=== PATIENT | male | born 1950 | race Caucasian/White ===

== ENCOUNTER 2016-08-29 11:56 | Emergency (ER) | payer BC, OTHER ==
[2016-08-29] MEDS ORDERED: Acetaminophen TAB* 325 MG PO ONE (12:12)
[2016-08-29 12:16] VITALS: BP 178/110
--- NOTE | 2016-08-29 12:44 | RAD ---
HISTORY: Right fourth digit deformity, trauma COMPARISONS: May 17, 2006 VIEWS: 3, Frontal, lateral, and oblique views of the fourth digit of the right hand FINDINGS: BONE DENSITY: Normal. BONES: There is no displaced fracture. 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 ALIGNMENT: There is posterior dislocation of the middle phalanx with respect to the proximal phalanx at the PIP joint SOFT TISSUES: Unremarkable. OTHER FINDINGS: None. IMPRESSION: FOURTH PIP JOINT DISLOCATION
[2016-08-29] MEDS ORDERED: Lidocaine 2% PF * 5 ML VIAL ONE (13:00)
--- NOTE | 2016-08-29 13:25 | UC ---
Raysa Cristobal Alok, scribed for Lucía Galaviz MD on 08/29/16 at 1214 . Hand/Wrist HPI - HPI Summary HPI Summary: 66 y/o male presents to the with after dislocating his right ring finger after slipping while picking up a gas can earlier today at 1000. Pt denies any dizziness. Pt is allergic to Aspirin which causes swelling but has taken Naproxen before with no adverse effects. - History Of Current Complaint Stated Complaint: FINGER INJURY Time Seen by Provider: 08/29/16 12:08 Hx Obtained From: Patient Onset/Duration: Gradual Onset, Lasting Hours, Still Present Severity Initially: Moderate Severity Currently: Moderate Pain Intensity: 7 Pain Scale Used: 0-10 Numeric Character Of Pain: Aching Aggravating Factor(s): Movement Alleviating: Nothing Associated Signs And Symptoms: Positive: Swelling. Negative: Fever, Weakness Related History: Dominant Hand Right - Allergies/Home Medications Allergies/Adverse Reactions: Allergies Allergy/AdvReac Type Severity Reaction Status Date / Time Aspirin Allergy Intermediate Difficulty Verified 09/17/14 10:12 Breathing hoarse serum Allergy Unknown Uncoded 09/22/15 16:47 Reaction Details PMH/Surg Hx/FS Hx/Imm Hx Previously Healthy: Yes Cancer History Of: Denies: Lung Cancer, Colorectal Cancer, Breast Cancer, Prostate Cancer, Cervical Cancer Other History Of: Negative For: HIV, Hepatitis B, Hepatitis C, Anticoagulant Therapy - Surgical History Surgical History: Yes Surgery Procedure, Year, and Place: tonsilectomy. 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 Alcohol Use: None Substance Use Type: None Smoking Status (MU): Never Smoked Tobacco Have You Smoked in the Last Year: No Review of Systems Constitutional: Negative Musculoskeletal: Other: - Dislocated right ring finger Neurological: Negative All Other Systems Reviewed And Are Negative: Yes Physical Exam Triage Information Reviewed: Yes Appearance: Well-Appearing, Well-Nourished, Pain Distress Vital Signs: Initial Vital Signs Temp 99.2 F 08/29/16 12:08 Pulse 90 08/29/16 12:08 Resp 18 08/29/16 12:08 BP 178/110 08/29/16 12:08 Pulse Ox 97 08/29/16 12:08 Vital Signs Reviewed: Yes Eyes: Positive: Conjunctiva Clear ENT: Positive: Normal ENT inspection Neck: Positive: Supple Respiratory: Positive: Lungs clear, Normal breath sounds, No respiratory distress Cardiovascular: Positive: RRR, No Murmur, Pulses Normal, Brisk Capillary Refill Abdomen Description: Negative: Splenomegaly Musculoskeletal: Positive: Other: - Dislocated right ring finger at PIP joint Neurological: Positive: Alert, Muscle Tone Normal Psychological Exam: Normal Skin Exam: Normal Procedures - Joint Reduction Joint Reduction Site: other - Right Ring Finger Specify Other Joint Reduced: PIP Conscious Sedation: No - 2% lidocaine for digital block of right 4th ring finger Reduction Attempts: 1 - Pt is in supine position Pre-Procedure NV Exam: Yes - intact Post Joint Reduction Film: joint not reduced Diagnostics - Radiology Finger XRay Xray Interpretation: Positive (See Comments) - IMPRESSION: FOURTH PIP JOINT DISLOCATION Radiology Interpretation Completed By: Radiologist Hand/Wrist Course/Dx - Differential Dx/Diagnosis Differential Diagnosis/HQI/PQRI: Dislocation - Right Ring Finger, Fracture, Sprain, Strain Provider Diagnoses: right ring finger PIP dislocation - Physician Notifications Discussed Patient Care With: Dr. Hendrix (Ortho) @ [id number] Discharge - Discharge Plan Condition: Stable Disposition: HOME Patient Education Materials: Finger Dislocation (ED) Forms: *Work Release Referrals: Johnathon Metcalf MD [Primary Care Provider] - Brittnee Hendrix MD [Medical Doctor] - As Soon As Possible (Dr. Hendrix will see you now. Please go directly to their office now. Do not eat or drink. ) Additional Instructions: RETURN TO URGENT CARE FOR ANY NEW OR WORSENING SYMPTOMS The documentation as recorded by the Raysa garsia Alok accurately reflects the service I personally performed and the decisions made by , Lucía Galaviz MD.
== END 2016-08-29 13:30 | disposition home or self-care (01) ==
LOC: UCEAST 11:56
DX: S63.274A Dislocation of unspecified interphalangeal joint of right ring finger, initial encounter (principal); W18.49XA Other slipping, tripping and stumbling without falling, initial encounter; Y93.89 Activity, other specified; Y92.9 Unspecified place or not applicable; Z88.6 Allergy status to analgesic agent
CPT/HCPCS: 73140; 99211; A9270-GY; G0463

== ENCOUNTER 2017-08-22 10:26 | Emergency (ER) | payer BC ==
[2017-08-22] MEDS ORDERED: NS 0.9% 1000 ML* 1,000 ML IV ONE (11:43)
[2017-08-22 12:10] LABS: ABS Basophils 0.1 10^3/ul (0-0.2); ABS Eosinophils 0 10^3/ul (0-0.6); ABS Lymphocytes 0.7 10^3/ul (1.0-4.8); ABS Monocytes 0.8 10^3/ul (0-0.8); ABS Neutrophils 14.9 10^3/ul (1.5-7.7); ABS Nucleated RBC 0 10^3/ul; Eosinophil % 0 % (0-6); Hematocrit 42 % (42-52); Lymphocyte % 4.2 % (25-47); Mean Corpuscular HGB Conc 34 g/dl (31-36); Mean Corpuscular Hemoglobin 30 pg (27-31); Mean Corpuscular Volume 90 fL (80-94); Mean Platelet Volume 8 um3 (7.4-10.4); Nucleated Red Blood Cells % 0.1; Platelet Count 257 10^3/ul (150-450); Red Blood Count 4.63 10^6/ul (4.0-5.4); Red Cell Distribution Width 14 % (10.5-15); White Blood Count 16.5 10^3/ul (3.5-10.8)
--- NOTE | 2017-08-22 12:23 | RAD ---
HISTORY: Abdominal pain COMPARISONS: None VIEWS: Frontal supine and upright views of the abdomen. FINDINGS: BOWEL: There is a nonobstructive bowel gas pattern. There is a large amount of stool within the colon. CALCULI: There are no abnormal calculi. BONES AND SOFT TISSUES: Mild degenerative changes are noted of the spine. OTHER FINDINGS: The lung bases are clear. There is no subphrenic gas. IMPRESSION: NONOBSTRUCTIVE BOWEL GAS PATTERN. LARGE AMOUNT OF STOOL THROUGHOUT THE COLON.
[2017-08-22 12:47] LABS: EGFR Non-African American 85.5 (>60)
[2017-08-22] MEDS ORDERED: Iohexol 300* (CONTRAST) 10 ML SDV IV ONE (15:34)
--- NOTE | 2017-08-22 16:15 | RAD ---
Indication: Right upper quadrant pain, vomiting. Contrast: Administered 127.1 ml of OMNIPAQUE 300 mg/ml CT of the abdomen and pelvis was performed after oral and IV contrast administration. Coronal and sagittal reconstructed images were obtained. Lung bases demonstrate no pleural fluid, nodules or masses. Heart is of normal size without evidence of pericardial effusion. Liver is normal in size. No focal lesions or intrahepatic ductal dilatation is noted. The gallbladder is distended. There may be wall thickening with pericholecystic fluid noted. No definite calcified gallstones are noted. A small amount of perihepatic ascites is noted. Pancreas demonstrates no mass or pancreatic ductal dilatation. Common duct is not dilated. Spleen is normal size. No adrenal masses are noted. The kidneys demonstrate symmetric nephrograms. No hydronephrosis is noted. No retroperitoneal lymphadenopathy is noted. The pancreas demonstrates no mass effect or pancreatic ductal dilatation. Circumferential thickening of the gastric antrum is noted. Colon is filled with stool. CT of the pelvis demonstrates diverticulosis without definite evidence of diverticulitis. No dilated loops of bowel are noted. No hernias are noted. The bladder is unremarkable. The appendix is visualized and is normal. IMPRESSION: Dilated gallbladder with pericholecystic fluid. Small amount of ascites is noted. Findings are consistent with cholecystitis. No definite calcified gallstones are noted. Diverticulosis of the sigmoid colon without definite evidence of diverticulitis.
[2017-08-22 17:12] VITALS: BP 158/82
--- NOTE | 2017-08-22 17:35 | ED ---
Amanda Cristobal Gabriel, scribed for Arya Caal MD on 08/22/17 at 1135 . Abdominal Pain/Male - HPI Summary HPI Summary: This patient is a 67 year old M presenting to [facility] with a chief complaint of diffuse ABD pain since 1999 last night. Pt feels like he had food sitting in his stomach that wont pass into his intestines. The patient rates the pain 7/10 in severity. Patient reports ABD bloating, nausea, and vomiting. Patient denies brown emesis, passing gas, decreased appetite, and bloody stool. Pt had a small BM this morning. Colonoscopy 6 years ago showed polyps. No ABD surgery in the past. - History of Current Complaint Chief Complaint: EDAbdPain Stated Complaint: ABD PAIN Hx Obtained From: Patient Onset/Duration: Lasting Hours, Still Present Timing: Constant Severity Initially: Moderate Severity Currently: Moderate Pain Intensity: 7 Pain Scale Used: 0-10 Numeric Location: Diffuse Radiates: No Associated Signs And Symptoms: Positive: Negative - brown emesis, passing gas, decreased appetite, and bloody stool, Other - ABD bloating and vomiting - Allergies/Home Medications Allergies/Adverse Reactions: Allergies Allergy/AdvReac Type Severity Reaction Status Date / Time aspirin Allergy Difficulty Verified 08/22/17 13:55 Breathing hoarse serum Allergy Unknown Uncoded 08/22/17 14:21 Reaction Details PMH/Surg Hx/FS Hx/Imm Hx Endocrine/Hematology History: Denies: Hx Anticoagulant Therapy, Hx Diabetes, Hx Thyroid Disease Cardiovascular History: Denies: Hx Congestive Heart Failure, Hx Deep Vein Thrombosis, Hx Hypertension , Hx Myocardial Infarction, Hx Pacemaker/ICD Respiratory History: Denies: Hx Asthma, Hx Chronic Obstructive Pulmonary Disease (COPD), Hx Lung Cancer, Hx Pneumonia, Hx Pulmonary Embolism GI History: Denies: Hx Gall Bladder Disease, Hx Gastrointestinal Bleed, Hx Ulcer, Hx Urosepsis History: Denies: Hx Kidney Stones, Hx Renal Disease Sensory History: Reports: Hx Contacts or Glasses Denies: Hx Hearing Aid Opthamlomology History: Reports: Hx Contacts or Glasses Neurological History: Denies: Hx Dementia, Hx Migraine, Hx Seizures, Hx Transient Ischemic Attacks (TIA) Psychiatric History: Denies: Hx Anxiety, Hx Depression, Hx Panic Disorder, Hx Schizophrenia, Hx Bipolar Disorder, Hx Substance Abuse - Surgical History Surgery Procedure, Year, and Place: tonsilectomy. 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 Lives: Alone Alcohol Use: None Substance Use Type: Reports: None Smoking Status (MU): Never Smoked Tobacco Have You Smoked in the Last Year: No Review of Systems Constitutional: Negative - decreased appetite Positive: Other Gastrointestinal: Negative - bloody stool, Other - hasn't passed gas Positive: Abdominal Pain - and bloating , Vomiting - that does not have blood in it , Nausea All Other Systems Reviewed And Are Negative: Yes Physical Exam - Summary Physical Exam Summary: Appearance: Well-appearing, Well-nourished Skin: Warm, Dry, No rash Eyes: Normal, PERRL, EOMI, sclera anicteric ENT: Normal Neck: Supple, nontender Respiratory: Clear to auscultation Cardiovascular: S1, S2, no murmur, no rub, no gallop Abdomen: Soft, RUQ pain, Bowel sounds: Present Musculoskeletal: Normal, Strength/ROM Intact, no edema, pulses symmetrical Neurological: Normal, A&Ox3, cranial nerves II-XII WNL, follows commands, gait not tested, sensation intact to pin and light touch Psychiatric: affect normal, behavior appropriate, dressed appropriately, judgment intact Rectal: no masses Triage Information Reviewed: Yes Vital Signs On Initial Exam: Initial Vitals Temp Pulse Resp BP Pulse Ox 98.5 F 65 18 167/92 98 08/22/17 10:29 08/22/17 10:29 08/22/17 10:29 08/22/17 10:29 08/22/17 10:29 Vital Signs Reviewed: Yes Diagnostics - Vital Signs Vital Signs Temp Pulse Resp BP Pulse Ox 08/22/17 10:29 98.5 F 65 18 167/92 98 - Laboratory Result Diagrams: 08/22/17 11:55 08/22/17 11:55 Lab Statement: Any lab studies that have been ordered have been reviewed, and results considered in the medical decision making process. - Radiology ABD Xray Radiology Interpretation Completed By: Radiologist - NONOBSTRUCTIVE BOWEL GAS PATTERN. LARGE AMOUNT OF STOOL THROUGHOUT THE COLON. ED physician has reviewed this radiology report and agrees. - CT ABD/Pelvis CT Interpretation Completed By: Radiologist - Dilated gallbladder with pericholecystic fluid. Small amount of ascites is noted. Findings are consistent with cholecystitis. No definite calcified gallstones are noted. Diverticulosis of the sigmoid colon without definite evidence of diverticulitis. ED physician has reviewed this radiology report and agrees. Abdominal Pain Fem Course/Dx - Course Assessment/Plan: This patient is a 67 year old M presenting to [facility] with a chief complaint of diffuse ABD pain since 1999 last night. Pt feels like he had food sitting in his stomach that wont pass into his intestines. The patient rates the pain 7/10 in severity. Patient reports ABD bloating, nausea, and vomiting. Patient denies brown emesis, passing gas, decreased appetite, and bloody stool. Pt had a small BM this morning. Colonoscopy 6 years ago showed polyps. No ABD surgery in the past. Pts Stool occult was negative. ABD XR reveals, per radiologist, NONOBSTRUCTIVE BOWEL GAS PATTERN. LARGE AMOUNT OF STOOL THROUGHOUT THE COLON. CT ABD/Pelvis reveals, per radiologist, Dilated gallbladder with pericholecystic fluid. Small amount of ascites is. noted. Findings are consistent with cholecystitis. No definite calcified gallstones are. noted. Diverticulosis of the sigmoid colon without definite evidence of diverticulitis. The patient has chosen not to stay for surgery, he would like to have it somewhere else. I advised him against this. Test results with no significant abnormalities except for WBC of 16.5. In the ED course the patient was given IV fluids. Dx acute cholecystitis. Patient will be discharged with prescription for Augmentin and Percocet. The patient is agreeable with this plan. - Diagnoses Provider Diagnoses: Acute cholecystitis Discharge - Discharge Plan Condition: Stable Disposition: HOME Prescriptions: Amoxicillin/Clavulanate TAB* [Augmentin TAB 875*] 875 mg PO BID #14 tab Ondansetron ODT TAB* [Zofran 4 MG Odt TAB*] 4 mg PO Q6H PRN #12 tab.odt PRN Reason: Nausea/Vomiting Oxycodone HCl/Acetaminophen [Percocet 5-325 mg Tablet] 1 each PO Q6HR PRN #15 tablet MDD 4 PRN Reason: Pain Patient Education Materials: Cholecystitis (ED) Referrals: Johnathon Metcalf MD [Primary Care Provider] - The documentation as recorded by the Amanda garsia Gabriel accurately reflects the service I personally performed and the decisions made by me, Arya Caal MD.
== END 2017-08-22 17:11 | disposition home or self-care (01) ==
LOC: ED 10:26
DX: R10.9 Unspecified abdominal pain (principal); K57.30 Diverticulosis of large intestine without perforation or abscess without bleeding
CPT/HCPCS: 36415; 74019; 74177; 80053; 82272; 83690; 85025; 99283; Q9967

== ENCOUNTER 2018-07-14 02:03 | Inpatient (IN) | payer BC ==
[2018-07-14] MEDS ORDERED: Labetalol IV* 5 MG/ML 20 ML VIAL IV PUSH ONE (02:26)
[2018-07-14] MEDS ORDERED: Morphine VIAL* 4 MG/ML VIAL (1 ml vial) IV ONE (02:28)
[2018-07-14] MEDS ORDERED: Ondansetron INJ* 2 MG/ML VIAL IV ONE (02:28)
--- NOTE | 2018-07-14 02:28 | ED ---
HPI Chest Pain - HPI Summary HPI Summary: This patient is a 68 year old M presenting to ED with a chief complaint of CP since a few days ago. The CC is described as intermittent and beginning in his abdomen and radiating to his back and chest. The patient rates the pain 10/10 in severity. Symptoms aggravated by nothing. Symptoms alleviated by nothing. Patient reports about 1.2 hours ago, the abdominal pain, back pain, SOB, and nausea worsened. Patient denies vomiting. Denies cardiac hx. - History of Current Complaint Chief Complaint: EDChestPainROMI Time Seen by Provider: 07/14/18 02:21 Hx Obtained From: Patient Onset/Duration: Started Days Ago, Still Present Timing: Intermittent Initial Severity: Severe Current Severity: Severe Pain Intensity: 10 Pain Scale Used: 0-10 Numeric Chest Pain Radiates: Yes Chest Pain Radiates To:: Other - abdominal pain radiating to back and chest Aggravating Factor(s): Nothing Alleviating Factor(s): Nothing Associated Signs and Symptoms: Positive: Chest Pain, Shortness of Breath, Nausea , Back Pain, Abdominal Pain. Negative: Vomiting - Allergy/Home Medications Allergies/Adverse Reactions: Allergies Allergy/AdvReac Type Severity Reaction Status Date / Time aspirin Allergy Difficulty Verified 07/14/18 02:19 Breathing Horse/Equine Containing Allergy Unknown Verified 07/14/18 15:01 Products Reaction Details PMH/Surg Hx/FS Hx/Imm Hx Endocrine/Hematology History: Denies: Hx Anticoagulant Therapy, Hx Diabetes, Hx Thyroid Disease Cardiovascular History: Denies: Hx Congestive Heart Failure, Hx Deep Vein Thrombosis, Hx Hypertension , Hx Myocardial Infarction, Hx Pacemaker/ICD Respiratory History: Denies: Hx Asthma, Hx Chronic Obstructive Pulmonary Disease (COPD), Hx Lung Cancer, Hx Pneumonia, Hx Pulmonary Embolism GI History: Denies: Hx Gall Bladder Disease, Hx Gastrointestinal Bleed, Hx Ulcer, Hx Urosepsis History: Denies: Hx Kidney Stones, Hx Renal Disease Sensory History: Reports: Hx Contacts or Glasses Denies: Hx Hearing Aid Opthamlomology History: Reports: Hx Contacts or Glasses Neurological History: Denies: Hx Dementia, Hx Migraine, Hx Seizures, Hx Transient Ischemic Attacks (TIA) Psychiatric History: Denies: Hx Anxiety, Hx Depression, Hx Panic Disorder, Hx Schizophrenia, Hx Bipolar Disorder, Hx Substance Abuse - Surgical History Surgery Procedure, Year, and Place: tonsilectomy. HERNIA - Immunization History Date of Tetanus Vaccine: utd Date of Influenza Vaccine: none Infectious Disease History: No Infectious Disease History: Denies: Hx Clostridium Difficile, Hx Hepatitis, Hx Human Immunodeficiency Virus (HIV), Hx of Known/Suspected MRSA, Hx Shingles, Hx Tuberculosis, Hx Known/ Suspected VRE, Hx Known/Suspected VRSA, History Other Infectious Disease, Traveled Outside the [place] in Last 30 Days - Family History Known Family History: Positive: Hypertension, Other - colon cancer (mother) Negative: Cardiac Disease, Diabetes - Social History Alcohol Use: None Substance Use Type: Reports: None Smoking Status (MU): Never Smoked Tobacco Have You Smoked in the Last Year: No Review of Systems Positive: Chest Pain Positive: Shortness Of Breath Positive: Abdominal Pain, Nausea. Negative: Vomiting Positive: Other - back pain All Other Systems Reviewed And Are Negative: Yes Physical Exam - Summary Physical Exam Summary: Appearance: Appears uncomfortable, Well-nourished Skin: Warm, dry, no obvious rash Eyes: sclera anicteric, no conjunctival pallor ENT: mucous membranes moist, pharynx appears normal Neck: Supple, nontender Respiratory: Clear to auscultation, mild respiratory distress with tachypnea noted. Cardiovascular: Normal S1, S2. No murmurs. Normal distal pulses in tibial and radial bilaterally. Abdomen: Soft, nontender, normal active bowel sounds present Musculoskeletal: Strength/ROM Intact. Mild peripheral edema thats symmetric. Neurological: A&Ox3, awake and alert, mentation is normal, speech is fluent and appropriate Psychiatric: affect is normal, does not appear anxious or depressed Triage Information Reviewed: Yes Vital Signs On Initial Exam: Initial Vitals Temp Pulse Resp BP Pulse Ox 97.8 F 70 20 212/135 99 07/14/18 02:04 07/14/18 02:04 07/14/18 02:04 07/14/18 02:04 07/14/18 02:04 Vital Signs Reviewed: Yes Diagnostics - Vital Signs Vital Signs Temp Pulse Resp BP Pulse Ox 07/14/18 02:04 97.8 F 70 20 212/135 99 - Laboratory Result Diagrams: 07/15/18 08:03 07/15/18 07:58 Lab Statement: Any lab studies that have been ordered have been reviewed, and results considered in the medical decision making process. - CT CTA Chest/Abd/Pel CT Interpretation Completed By: Radiologist Summary of CT Findings: CTA Chest: No acute findings. CTA Abd/Pel: 1. No acute vascular findings. 2. Mildly distended gallbladder with apparent wall thickening and. pericholecystic stranding. No calcified stones. Further evaluation with ultrasound is recommended to rule out acute cholecystitis. 3. A small hiatal hernia. 4. Colonic diverticulosis with possible early acute descending diverticulitis. 5. Mildly enlarged prostate gland. - EKG 0206 Cardiac Rate: NL - 65 BPM EKG Rhythm: Sinus Rhythm EKG Comparison: No Significant Change - from prior on 02/24/14 Summary of EKG Findings: anterior ST elevation, probably due to LVH Re-Evaluation - Re-Evaluation First Eval Re-Evaluation Time: 04:01 Comment: Discussed results with the patient. The patient agrees to admission. Chest Pain Course/Dx - Course Assessment/Plan: This patient is a 68 year old M presenting to ED with a chief complaint of CP since a few days ago. The CC is described as intermittent. Patient reports about 1.2 hours ago, the abdominal pain, back pain, SOB, and nausea worsened. Patient denies vomiting. Denies cardiac hx. EKG reveals NSR at 65 BPM, anterior ST elevation, probably due to LVH, and no change from prior on 02/24/14. CTA Chest: No acute findings. CTA Abd/Pel: 1. No acute vascular findings. 2. Mildly distended gallbladder with apparent wall thickening and pericholecystic stranding. No calcified stones. Further evaluation with ultrasound is recommended to rule out acute cholecystitis. 3. A small hiatal hernia. 4. Colonic diverticulosis with possible early acute descending diverticulitis. 5. Mildly enlarged prostate gland. Consulted Dr. Tesfaye about the patient's case and accepts the patient for admission. Patient understands and agrees with this plan. - Chest Pain Differential Diagnosis/HQI/PQRI: Other: - cholecystitis - Diagnoses Provider Diagnoses: Cholecystitis - Provider Notifications Discussed Care Of Patient With: Isadora Gupta Time Discussed With Above Provider: 04:03 Instructed by Provider To: Admit As Inpatient Discharge - Sign-Out/Discharge Documenting (check all that apply): Patient Departure - admit Patient Received Moderate/Deep Sedation with Procedure: No - Discharge Plan Condition: Stable Disposition: ADMITTED TO [facility] - Billing Disposition and Condition Condition: STABLE Disposition: Admitted to [facility] - Attestation Statements Document Initiated by Sybilibe: Yes Documenting Scribe: nAdreas Xiong Provider For Whom Malik is Documenting (Include Credential): Toby Howard MD Scribe Attestation: IAndreas, scribed for Toby Howard MD on 07/15/18 at 2326. Scribe Documentation Reviewed: Yes Provider Attestation: The documentation as recorded by the Andreas garsia accurately reflects the service I personally performed and the decisions made by meToby MD Status of Scribe Document: Viewed
[2018-07-14] MEDS ORDERED: Morphine VIAL* 10 MG/ML 1 ML VIAL ONE (02:49)
[2018-07-14] MEDS ORDERED: Iodixanol 320 (CONTRAST) 100 ML SDV IV ONE (02:50)
[2018-07-14 03:32] LABS: ABS Basophils 0.1 10^3/ul (0-0.2); ABS Eosinophils 0.2 10^3/ul (0-0.6); ABS Lymphocytes 1.2 10^3/ul (1.0-4.8); ABS Monocytes 0.8 10^3/ul (0-0.8); ABS Nucleated RBC 0 10^3/ul; Eosinophil % 2.1 %; Hematocrit 38 % (42-52); Hemoglobin 12.6 g/dl (14.0-18.0); Lymphocyte % 15.1 %; Mean Corpuscular HGB Conc 33 g/dl (31-36); Mean Corpuscular Hemoglobin 30 pg (27-31); Mean Corpuscular Volume 89 fL (80-94); Nucleated Red Blood Cells % 0; Platelet Count 238 10^3/ul (150-450); Red Blood Count 4.29 10^6/ul (4.00-5.40); Red Cell Distribution Width 14 % (10.5-15); White Blood Count 8.2 10^3/ul (3.5-10.8)
[2018-07-14 03:35] LABS: INR 0.89 (0.77-1.02)
[2018-07-14 03:47] LABS: Albumin/Globulin Ratio 1.5 (1-3); BUN/Creatinine Ratio 19.8 (8-20); Calcium 8.6 mg/dL (8.6-10.3); EGFR African American 84.3 (>60); EGFR Non-African American 69.7 (>60); Globulin 2.7 g/dL (2-4); Potassium 4.1 mmol/L (3.5-5.0); Total Bilirubin 0.3 mg/dL (0.2-1.0); Total Protein 6.7 g/dL (6.4-8.9)
[2018-07-14 03:49] LABS: Troponin I 0.01 ng/mL (<0.04)
[2018-07-14] MEDS ORDERED: Piperacillin/Tazobac ADVAN(*) 3.375 GM in NS 0.9% 100 ML* 100 ML IVPB ONE (03:56)
[2018-07-14] MEDS ORDERED: Senna TAB PO PRN (04:27)
[2018-07-14] MEDS ORDERED: Acetaminophen TAB* 325 MG PO PRN (04:27)
[2018-07-14] MEDS ORDERED: Al Hydrox/Mg Hydrox/Simet LIQ* 30 ML UDC PO PRN (04:27)
[2018-07-14] MEDS ORDERED: Docusate CAP* 100 MG PO PRN (04:27)
[2018-07-14] MEDS ORDERED: Ondansetron INJ* 2 MG/ML VIAL IV PRN (04:27)
[2018-07-14] MEDS ORDERED: Morphine VIAL* 10 MG/ML 1 ML VIAL IV PRN (04:30)
[2018-07-14] MEDS ORDERED: NS 0.9% 1000 ML** 1,000 ML IV SCH (04:30)
[2018-07-14] MEDS ORDERED: PROCHLORPERAZINE INJ 5 MG/ML 2 ML VIAL IV PRN (04:31)
[2018-07-14] MEDS ORDERED: Zosyn per Pharmacy* NOTE FOLLOW UP SCH (05:00)
[2018-07-14 06:11] LABS: Troponin I 0.02 ng/mL (<0.04)
[2018-07-14 06:13] LABS: HDL Cholesterol 38.9 mg/dL
[2018-07-14] MEDS: Heparin VIAL(*) 5000 UNITS/ML VIAL (FIVE THOUSAND) SUBCUT SCH ×3 (06:49→21:46)
[2018-07-14] MEDS ORDERED: HYDROmorphone INJ1* 1 MG/ML SYRINGE IV SLOW PU ONE (07:13)
[2018-07-14] MEDS: NS 0.9% 1000 ML** 1,000 ML IV SCH ×2 (07:31→16:08)
[2018-07-14] MEDS: ZOSYN 3.375 GM Q8H per EXTENDED INFUSION IVPB SCH ×4 (07:50→16:08)
--- NOTE | 2018-07-14 10:11 | ECHO ---
Patient: JAVIER LIN [facility] Rec#: [id number] : 1950 Date: 07/14/2018 Age: 68y Height: 183 cm / 72.0 in Weight: 98 kg / 216.0 lbs Sex: M BSA: 2.2 Room#: 436 Admit Date#: 07/14/2018 Type: Inpatient Referring: Isadora Gupta Reading: Buzz Saleh MD Caseworker Intake: Noelle Man RDCS,RDMS CC: Johnathon Metcalf MD Transthoracic Echocardiogram Indication: CP BP: 159/96 HR: 70 Rhythm: NSR Findings History: Hiatal hernia Technical Comments: The study quality is good. Left Ventricle: The left ventricular chamber size is normal. Moderate to severe concentric left ventricular hypertrophy is observed. There is normal left ventricular systolic function. The estimated ejection fraction is 55-60%. Abnormal left ventricular diastolic filling is observed, consistent with impaired relaxation. Left Atrium: The left atrium is severely dilated. Right Ventricle: The right ventricular chamber size and systolic function are within normal limits. The right ventricle wall thickness is mildly increased. Right Atrium: The right atrium is mild to moderately dilated. Aortic Valve: The aortic valve is trileaflet. The aortic valve leaflets are mildly thickened. There is aortic annular calcification. There is mild aortic regurgitation. There is no evidence of aortic stenosis. Mitral Valve: Moderate mitral annular calcification present. The mitral valve leaflets are moderately thickened. Mitral valve leaflet mobility is moderately restricted. There is mild mitral regurgitation. There is moderate mitral stenosis. The mean gradient across the mitral valve is 4 mmHg. The pressure half time of the mitral valve is 163 msec. The mitral valve area, by pressure half time, is calculated at 1.4 cm2. Tricuspid Valve: The tricuspid valve leaflets are normal. There is trace tricuspid regurgitation. Unable to estimate the right ventricular systolic pressure. Pulmonic Valve: The pulmonic valve appears normal. There is no evidence of pulmonic regurgitation. Pericardium: There is no significant pericardial effusion. Aorta: The aortic root appears normal. There is no dilatation of the aortic arch. Pulmonary Artery: The main pulmonary artery appears normal. Venous: The inferior vena cava is dilated. There is a greater than 50% respiratory change in the inferior vena cava dimension. Summary: There was not any prior study for comparison. Conclusions Moderate to severe concentric left ventricular hypertrophy is observed. There is normal left ventricular systolic function. The estimated ejection fraction is 55-60%. The left atrium is severely dilated. The aortic valve leaflets are mildly thickened. There is mild aortic regurgitation. There is no evidence of aortic stenosis. The mitral valve leaflets are moderately thickened. There is mild mitral regurgitation. There is moderate mitral stenosis. The mean gradient across the mitral valve is 4 mmHg. The pressure half time of the mitral valve is 163 msec. There is trace tricuspid regurgitation. Unable to estimate the right ventricular systolic pressure. There is no significant pericardial effusion. Measurements Name Value Normal Range RVIDd (AP) 2D 2.6 cm (0.9 - 2.6) RVDdMajor (2D) 3.1 cm (2.2 - 4.4) RAd ISD 4CH 5.6 cm (3.4 - 4.9) RA (A4C)W 3.2 cm (2.9 - 4.6) IVSd (2D) 1.7 cm (0.6 - 1) LVPWd (2D) 1.3 cm (0.6 - 1) LVIDd (2D) 4.7 cm (3.6 - 5.4) LVIDs (2D) 3.1 cm - LV FS (2D) 33 % (25 - 45) Aortic Annulus 2.2 cm (1.4 - 2.6) Ao root diameter (2D) 3.2 cm (2.1 - 3.5) Ascending Ao 3.2 cm (2.1 - 3.4) Aortic arch 3.1 cm (1.8 - 3.4) LA dimension (AP) 2D 4.8 cm (2.3 - 3.8) LAd ISD 4CH 6.4 cm (2.9 - 5.3) LA ISD 4CH W 6.5 cm (2.5 - 4.5) Name Value Normal Range LA ESV BP (A/L) index 73 ml/m2 - Name Value Normal Range MV E-wave Vmax 1.1 m/sec - MV deceleration time 319 msec - MV A-wave Vmax 1.4 m/sec - MV E:A ratio 0.8 ratio - P. vein S-wave Vmax 0.6 m/sec - P. vein D-wave Vmax 0.3 m/sec - P. vein S:D Vmax ratio 2.2 ratio - P. vein A-wave duration 137 msec - LV septal e' Vmax 0.04 m/sec - LV lateral e' Vmax 0.03 m/sec - LV E:e' septal ratio 28.5 ratio - LV E:e' lateral ratio 33.5 ratio - Name Value Normal Range AV Vmax 2.1 m/sec - AV VTI 41 cm - AV peak gradient 17 mmHg - AV mean gradient 8 mmHg - LVOT diameter 2 cm - LVOT Vmax 1.5 m/sec - LVOT VTI 35 cm - LVOT peak gradient 9 mmHg - LVOT mean gradient 5 mmHg - ECTOR (continuity Vmax) 2.2 cm2 - ECTOR (continuity VTI) 2.7 cm2 - AR PHT 559 msec - Name Value Normal Range MV Vmax 1.5 m/sec - MV VTI 42 cm - MV peak gradient 9 mmHg - MV mean gradient 4 mmHg - MV PHT 163 msec - MVA (PHT) 1.4 cm2 - MVA (continuity VTI) 3.1 cm2 - Name Value Normal Range RAP 8 mmHg - IVC diameter 2.5 cm - Name Value Normal Range PV Vmax 0.7 m/sec - PV peak gradient 2 mmHg -
--- NOTE | 2018-07-14 10:18 | PN ---
Subjective Date of Service: 07/14/18 Interval History: HOSPITALIST PROGRESS NOTE Patient seen and examined at bedside. Care reviewed and d/w Veda Paula RN. He feels a little better now. States Dilaudid worked better than Morphine. Pain started 5 days ago after eating greasy food. It subsided over the weekend, but it returned yesterday after eating [place] food. Pain is epigastric, radiating to his back, 10/10 intensity, "everything hurts", associated with nausea and bloating sensation. Family History: Unchanged from Admission Social History: Unchanged from Admission Past Medical History: Unchanged from Admission Objective Active Medications: Acetaminophen (Tylenol Tab*) 650 mg PO Q4H PRN PRN Reason: FEVER/PAIN Al Hydrox/Mg Hydrox/Simethicone (Maalox Plus*) 30 ml PO Q6H PRN PRN Reason: INDIGESTION Alfuzosin HCl (Uroxatral (Nf)) 10 mg PO BEDTIME [facility] Docusate Sodium (Colace Cap*) 100 mg PO BID PRN PRN Reason: CONSTIPATION Heparin Sodium (Porcine) (Heparin Vial(*)) 5,000 units SUBCUT Q8HR [facility] Last Admin: 07/14/18 06:49 Dose: 5,000 units Sodium Chloride (Ns 0.9% 1000 Ml*) 1,000 mls @ 125 mls/hr IV PER RATE [facility] Last Admin: 07/14/18 07:31 Dose: 125 mls/hr Piperacillin Sod/Tazobactam (Sod 3.375 gm/ Sodium Chloride) 115 mls @ 28.75 mls /hr IVPB Q8H [facility] Last Admin: 07/14/18 07:50 Dose: 28.75 mls/hr Morphine Sulfate (Morphine Vial*) 4 mg IV Q4H PRN PRN Reason: PAIN - MILD Ondansetron HCl (Zofran Inj*) 4 mg IV Q4H PRN PRN Reason: NAUSEA/VOMITING Pharmacy Consult (Zosyn Per Pharmacy*) 1 note FOLLOW UP .ZOSYN PER PHARMACY [facility] Prochlorperazine Edisylate (Compazine Inj*) 5 mg IV Q6H PRN PRN Reason: NAUSEA/VOMITING Last Admin: 07/14/18 06:49 Dose: 5 mg Senna (Senokot Tab*) 1 tab PO BID PRN PRN Reason: CONSTIPATION Vital Signs - 8 hr 07/14/18 07/14/18 07/14/18 02:20 02:21 03:01 Temperature Pulse Rate 67 65 64 Respiratory 17 21 27 Rate Blood Pressure 205/124 (mmHg) O2 Sat by Pulse 100 100 99 Oximetry 07/14/18 07/14/18 07/14/18 03:05 03:07 03:21 Temperature Pulse Rate 66 65 Respiratory 18 20 16 Rate Blood Pressure 197/110 169/93 (mmHg) O2 Sat by Pulse 95 96 Oximetry 07/14/18 07/14/18 07/14/18 03:51 04:00 04:21 Temperature Pulse Rate 63 63 67 Respiratory 14 15 16 Rate Blood Pressure 174/96 242/186 (mmHg) O2 Sat by Pulse 93 98 99 Oximetry 07/14/18 07/14/18 07/14/18 04:25 04:51 05:00 Temperature Pulse Rate 65 64 61 Respiratory 18 15 16 Rate Blood Pressure 165/107 160/84 (mmHg) O2 Sat by Pulse 97 95 95 Oximetry 07/14/18 07/14/18 07/14/18 05:21 05:51 06:00 Temperature Pulse Rate 66 70 65 Respiratory 19 13 12 Rate Blood Pressure 163/92 159/96 (mmHg) O2 Sat by Pulse 96 97 94 Oximetry 07/14/18 07/14/18 07/14/18 06:35 07:31 09:22 Temperature 98.4 F Pulse Rate 65 Respiratory 12 18 16 Rate Blood Pressure 159/96 (mmHg) O2 Sat by Pulse 94 Oximetry Oxygen Devices in Use Now: Nasal Cannula Appearance: Pleasant gentleman sitting up in bed in NAD Eyes: No Scleral Icterus Ears/Nose/Mouth/Throat: Mucous Membranes Moist Neck: Trachea Midline Respiratory: Symmetrical Chest Expansion and Respiratory Effort, Clear to Auscultation Cardiovascular: RRR - Normal S1 and S2 Abdominal: - - Soft, mild epigastric pain, NG, NR, BS+, small umbilical hernia present Extremities: No Edema Neurological: Alert and Oriented x 3, NL Muscle Strength and Tone Result Diagrams: 07/14/18 11:37 07/14/18 11:37 Assess/Plan/Problems-Billing Assessment: Mr Bond is a 68yo M with PMH of BPH who presented to ED with c/o recurrent epigastric pain, radiating to his back, found to have acute cholecystitis. - Patient Problems (1) Acute cholecystitis Comment: - CT/US abdome reviewed - compatible with cholecytitis. - Surgery consult requested. - Continue pain management, IVF, and Zosyn. - Labs repeated - LFTs are trending up. - He has no complaints of chest pain, palpitations, or dyspnea. Has good exercise capacity. EKG shows no ischemic changes, only LVH. Echo shows moderate to severe LVH with normal EF and no reported wall motion abnormalities, moderate MS. - Suspect his LVH is secondary to uncontrolled/undiagnosed HTN - will start amlodipine and monitor. - RCRI is 0 predicting a 0.4-0.5% risk of cardiac complications. He's optimized for proposed lap tim. (2) HTN (hypertension) Comment: - Suspect his LVH is secondary to uncontrolled HTN - will start amlodipine and monitor. - Talked to his PCP - EKG in 2009 already had some signs of LVH. - BP in the office was in th 130-140s before. (3) BPH (benign prostatic hyperplasia) Comment: - Continue Alfuzosin. (4) DVT prophylaxis Comment: - SQ heparin (5) Full code status Status and Disposition: Inpatient for management of acute cholecystitis.
--- NOTE | 2018-07-14 10:38 | HP ---
CC: Johnathon Metcalf MD HISTORY AND PHYSICAL: DATE OF ADMISSION: 07/14/18 TIME OF EVALUATION: 0500. PRIMARY CARE PHYSICIAN: Johnathon Metcalf MD CHIEF COMPLAINT: Abdominal pain. HISTORY OF PRESENT ILLNESS: This is a 68-year-old male with unremarkable past medical history, who presented to the emergency room with abdominal pain, nausea , and chest pain. The patient states he went home from work early on Friday, , with abdominal pain, was not feeling well, did not eat very much for dinner. The following 3 days, he was feeling better. He states he went to the chiropractor on 07/13/18 for his back pain. Last night around 10:00 or 11:00, he developed stomach cramping, epigastric tenderness and his more bigger concern was the left-sided chest pain radiating into his back and down his left arm with significant nausea, shortness of breath and dizziness. His girlfriend states he was very clammy. No fever, no diarrhea, no constipation, no urinary symptoms. He has been having normal bowel movements. The patient was brought to the emergency room by his girlfriend. In the ER, the patient had labs and imaging and there was concern for acute cholecystitis. He was given Zosyn, Zofran, morphine, labetalol and referred to the hospitalist service for further evaluation. Otherwise review of systems is negative. PAST MEDICAL HISTORY: BPH. MEDICATIONS: 1. Alfuzosin 10 mg p.o. at bedtime. 2. Viagra 1 tab p.o. daily as needed. ALLERGIES: ASPIRIN, difficulty breathing; HORSE SERUM. FAMILY HISTORY: Mother from colon cancer. Father from leukemia. SOCIAL HISTORY: Lives with his girlfriend. 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 He quit smoking in 2000, smoking around a pack per day. No alcohol use or illicit drug use. His health care proxy is his sister. Code status is full code. REVIEW OF SYSTEMS: A 14-point review of systems as mentioned in the HPI, otherwise negative. PHYSICAL EXAMINATION GENERAL: No acute distress. Resting comfortably with his girlfriend at the bedside. VITAL SIGNS: Temp 97.8, pulse rate 64, respiratory rate 18, oxygen saturation 97% on room air, blood pressure 165/107. HEENT: Head: Normocephalic. Pupils equal and reactive, anicteric. Oropharynx : Mucous membranes moist. NECK: Supple. No lymphadenopathy. RESPIRATORY: Clear to auscultation. No wheeze, rhonchi or rales. CARDIAC: Regular rate and rhythm, systolic murmur most prominent at the left sternal base. ABDOMEN: Hypoactive bowel sounds. Morbidly obese, soft, diffuse tenderness. No rebound or guarding. No significant tenderness in the right upper quadrant. EXTREMITIES: No clubbing, cyanosis, or edema. +1 DP. NEUROLOGIC: Alert and oriented x3. No gross focal neurologic deficits. LABORATORY DATA: White count 8.2, hemoglobin 12.6, hematocrit 38, platelets 238. INR was 0.89. D-dimer is less than 200. Sodium 136, potassium 4.1, chloride 106, bicarb 22, BUN 21, creatinine 1.06. Glucose 113. Lactic acid 1.5. Troponin is 0.01. RADIOGRAPHIC DATA: EKG shows normal sinus rhythm, nonspecific ST changes. Chest, abdomen and pelvis CT: No acute findings of the chest, abdomen and pelvis. Mildly distended gallbladder with apparent wall thickening and pericholecystic stranding. No calcified stones. Further evaluation with ultrasound is recommended to rule out acute cholecystitis. Small hiatal hernia , colonic diverticulosis, possible early acute descending diverticulitis, mildly enlarged prostate gland. ASSESSMENT: This is a 68-year-old male with unremarkable past medical history, who presents to the emergency room with abdominal pain, nausea and chest pain. 1. Abdominal pain, nausea, and chest pain: Assessment: The patient with findings concerning for early acute cholecystitis, although presentation is atypical with diffuse pain, and his chest pain that is going on may be a stress- induced response or referred pain from his cholecystitis. Also question of possible early diverticulitis as well. He has no changes in bowels. No fever, no white count. Plan: We will admit him to inpatient [facility]. We will continue to trend his total protein and echocardiogram. Also obtain an ultrasound of the gallbladder. We will keep him n.p.o., fluids, pain control, antiemetics and contact Surgery in the morning for further workup for likely acute cholecystitis. 2. Chronic medical problems. Benign prostatic hypertrophy: Continue his alfuzosin. 3. FEN: N.p.o. with IV fluids. 4. DVT prophylaxis: The patient scores high risk, placed on heparin subcu daily. 5. Code status: Full code. PATIENT TIME: Greater than 30 minutes was spent doing the history and physical , more than half the time spent in direct patient contact. [id number]/[facility] #: [id number] MTDD
[2018-07-14 11:44] LABS: ABS Basophils 0.1 10^3/ul (0-0.2); ABS Eosinophils 0.1 10^3/ul (0-0.6); ABS Lymphocytes 1.2 10^3/ul (1.0-4.8); ABS Monocytes 1.1 10^3/ul (0-0.8); ABS Neutrophils 8.5 10^3/ul (1.5-7.7); ABS Nucleated RBC 0 10^3/ul; Eosinophil % 0.6 %; Hematocrit 40 % (42-52); Hemoglobin 13.2 g/dl (14.0-18.0); Lymphocyte % 10.8 %; Mean Corpuscular HGB Conc 33 g/dl (31-36); Mean Corpuscular Hemoglobin 30 pg (27-31); Mean Corpuscular Volume 89 fL (80-94); Mean Platelet Volume 7.5 fL (7.4-10.4); Nucleated Red Blood Cells % 0; Platelet Count 253 10^3/ul (150-450); Red Blood Count 4.43 10^6/ul (4.00-5.40); Red Cell Distribution Width 14 % (10.5-15); White Blood Count 10.9 10^3/ul (3.5-10.8)
[2018-07-14 12:01] LABS: Albumin 3.9 g/dL (3.2-5.2); Albumin/Globulin Ratio 1.4 (1-3); BUN/Creatinine Ratio 15.6 (8-20); C Reactive Protein 4.94 mg/L (<8.01); Calcium 8.4 mg/dL (8.6-10.3); EGFR African American 94.5 (>60); EGFR Non-African American 78.1 (>60); Globulin 2.7 g/dL (2-4); Potassium 4.3 mmol/L (3.5-5.0); Total Bilirubin 0.4 mg/dL (0.2-1.0); Total Protein 6.6 g/dL (6.4-8.9)
[2018-07-14] MEDS: amLODIPine TAB* 5 MG PO SCH (15:08)
--- NOTE | 2018-07-14 16:27 | CONS ---
CC: Dr. Johnathon Metcalf * SURGICAL CONSULTATION DATE OF CONSULTATION: 07/14/2018. ATTENDING SURGEON: Dr. Joni Mccartney (BRIGITTE Pacheco dictating). CHIEF COMPLAINT: Abdominal pain. HISTORY OF PRESENT ILLNESS: This is a 68-year-old male who on Friday, 2018, began to experience some epigastric abdominal pain. He describes pain in the upper abdomen, radiating to the back with associated nausea, but no vomiting. He went home from work, but was feeling better the next day. Again, on 07/12/2018, he experienced a similar pain which subsided over night. Finally again last night, he developed the same pain along with pain in his left chest, again radiating into his back and into the left arm with associated nausea and some shortness of breath and clamminess. He has had no lower GI symptoms. He states that he was seen in the ED about a year ago for similar symptoms and was told that it might be gallbladder, though he deferred further evaluation at the time. At the present time, he still feels fairly uncomfortable, but not as bad as last evening. He denies any change in the color of his urine or stools. He denies fever or chills. PAST MEDICAL HISTORY: Significant for BPH. PAST SURGICAL HISTORY: Bilateral inguinal herniorrhaphy in the . CURRENT MEDICATIONS: 1. Alfuzosin 10 mg once daily at bedtime. 2. Viagra once daily prn. ALLERGIES: ASPIRIN (BREATHING DIFFICULTY), HORSE SERUM. SOCIAL HISTORY: He is a former smoker who quit in 2000 with a previous one pack per day history. He denies the use of alcohol or other recreational drugs. He lives with his girlfriend who is also present at the time of the consult. REVIEW OF SYSTEMS: General: No recent constitutional symptoms or illnesses other than as described in the HPI. HEENT: No problems reported. Cardiovascular: No history of chest pain, palpitations, DC, or angina. No history of hypertension or heart murmur. Respiratory: Childhood history of asthma. Smoking history as noted above. No recent problems other than noted above. GI: As above. He undergoes colonoscopy approximately every five years because of both family history of colon cancer and personal history of benign polyps. His last study was approximately one year ago and was otherwise normal with removal of benign polyps. He has had no interval significant lower GI symptoms. : BHP. No additions. Endocrine: No diabetes or thyroid dysfunction. PHYSICAL EXAM: General: Well-nourished, well-developed male in no acute distress. He appears mildly uncomfortable. Vital Signs: Height 6 feet, weight 214 pounds. Temperature 97.4, blood pressure 156/78, pulse 64, respirations 20, room air saturation 95 percent. Skin: Warm and dry. No suspicious rashes or lesions. HEENT: Pupils equal and round, reactive. EOM's intact. No conjunctival pallor or scleral icterus. Oropharynx: Mucus membranes dry. Teeth in fair to good repair. No intraoral lesions. Neck: No lymphadenopathy, thyromegaly, or masses. Heart: Regular rate and rhythm. No murmur noted. Lungs: Clear to auscultation. No wheezes. There are decreased breath sounds at both bases. Abdomen: He does have an umbilical hernia which is soft, but mildly tender to palpation. There are no palpable inguinal hernias, though his CT does demonstrate fat-containing bilateral inguinal hernias. The remainder of the abdomen is soft and without significant tenderness. There are no palpable masses or organomegaly. Aguayo sign is negative. Specifically, there is no left lower quadrant tenderness. No guarding or peritoneal signs. Genitalia: Otherwise not examined. Rectal: Not done. Back: No spinous process or CVA tenderness. Extremities: No edema. Neurological: Grossly intact. LABORATORY DATA: White blood cell count 8,200, hemoglobin 12.6; chemistries are essentially normal, including LFT's and lipase. Troponin initially was 0.01 and on repeat 0.02. His EKG report was reviewed. His echocardiogram shows moderately severe LVH, but with normal left ventricular systolic function with an estimated ejection fraction of 55 to 60 percent. There was noted to be some abnormal left ventricular diastolic filling, as well as a dilated left atrium and moderate mitral stenosis. CT scan with IV contrast of the chest, abdomen, and pelvis done on admission showed no evidence of pulmonary embolus. It did show a mildly distended gallbladder with apparent wall thickening and pericholecystic stranding. There was also noted to be a small hiatal hernia and colonic diverticulosis with possible early acute descending diverticulitis. The appendix was normal. Ultrasound of the gallbladder done today does confirm the presence of both gallstones and sludge, as well as gallbladder wall thickening (5 mm) and pericholecystic fluid with mild extrahepatic ductal distention (common bile duct measured at 0.8 cm). IMPRESSION: Acute cholecystitis. PLAN: Case was discussed with Dr. Mccartney and Dr. Siddiqui. Dr. Mccartney will see the patient tomorrow in anticipation of proceeding with laparoscopic cholecystectomy on . Per Dr. Siddiqui, the patient is felt to be cleared medically to proceed to surgery without any further investigation. The patient will be maintained on the current regime of IV Zosyn and we will allow him a clear liquid diet until the time of surgery. BRIGITTE PACHECO [id number]/[facility] #: [id number] MTDJean Pierre
[2018-07-14] MEDS: ALFUZOSIN 10 MG PO SCH (21:44)
[2018-07-15] MEDS: NS 0.9% 1000 ML** 1,000 ML IV SCH ×2 (00:08→15:05)
[2018-07-15] MEDS: ZOSYN 3.375 GM Q8H per EXTENDED INFUSION IVPB SCH ×6 (00:09→15:56)
[2018-07-15] MEDS: Heparin VIAL(*) 5000 UNITS/ML VIAL (FIVE THOUSAND) SUBCUT SCH ×3 (05:07→21:36)
[2018-07-15 08:15] LABS: ABS Basophils 0.1 10^3/ul (0-0.2); ABS Eosinophils 0.2 10^3/ul (0-0.6); ABS Lymphocytes 1.4 10^3/ul (1.0-4.8); ABS Neutrophils 5.8 10^3/ul (1.5-7.7); ABS Nucleated RBC 0 10^3/ul; Eosinophil % 1.8 %; Hematocrit 37 % (42-52); Hemoglobin 12.7 g/dl (14.0-18.0); Lymphocyte % 16.3 %; Mean Corpuscular HGB Conc 35 g/dl (31-36); Mean Corpuscular Hemoglobin 31 pg (27-31); Mean Corpuscular Volume 89 fL (80-94); Mean Platelet Volume 7.7 fL (7.4-10.4); Nucleated Red Blood Cells % 0; Platelet Count 226 10^3/ul (150-450); Red Blood Count 4.12 10^6/ul (4.00-5.40); Red Cell Distribution Width 14 % (10.5-15); White Blood Count 8.4 10^3/ul (3.5-10.8)
[2018-07-15] MEDS: amLODIPine TAB* 5 MG PO SCH (08:18)
--- NOTE | 2018-07-15 08:22 | PN ---
Subjective Date of Service: 07/15/18 Interval History: HOSPITALIST PROGRESS NOTE Patient seen and examined at bedside. Care reviewed and d/w Leidy Bird RN. He feels a little better today, pain is well controlled. No N/V, had a small BM last night. Family History: Unchanged from Admission Social History: Unchanged from Admission Past Medical History: Unchanged from Admission Objective Active Medications: Acetaminophen (Tylenol Tab*) 650 mg PO Q4H PRN PRN Reason: FEVER/PAIN Al Hydrox/Mg Hydrox/Simethicone (Maalox Plus*) 30 ml PO Q6H PRN PRN Reason: INDIGESTION Alfuzosin HCl (Uroxatral (Nf)) 10 mg PO BEDTIME [facility] Last Admin: 07/14/18 21:44 Dose: 10 mg Amlodipine Besylate (Norvasc Tab*) 5 mg PO DAILY [facility] Last Admin: 07/15/18 08:18 Dose: 5 mg Docusate Sodium (Colace Cap*) 100 mg PO BID PRN PRN Reason: CONSTIPATION Heparin Sodium (Porcine) (Heparin Vial(*)) 5,000 units SUBCUT Q8HR [facility] Last Admin: 07/15/18 05:07 Dose: 5,000 units Sodium Chloride (Ns 0.9% 1000 Ml*) 1,000 mls @ 125 mls/hr IV PER RATE [facility] Last Admin: 07/15/18 00:08 Dose: 125 mls/hr Piperacillin Sod/Tazobactam (Sod 3.375 gm/ Sodium Chloride) 115 mls @ 28.75 mls /hr IVPB Q8H [facility] Last Admin: 07/15/18 08:19 Dose: 28.75 mls/hr Morphine Sulfate (Morphine Vial*) 4 mg IV Q4H PRN PRN Reason: PAIN - MILD Ondansetron HCl (Zofran Inj*) 4 mg IV Q4H PRN PRN Reason: NAUSEA/VOMITING Pharmacy Consult (Zosyn Per Pharmacy*) 1 note FOLLOW UP .ZOSYN PER PHARMACY [facility] Prochlorperazine Edisylate (Compazine Inj*) 5 mg IV Q6H PRN PRN Reason: NAUSEA/VOMITING Last Admin: 07/14/18 06:49 Dose: 5 mg Senna (Senokot Tab*) 1 tab PO BID PRN PRN Reason: CONSTIPATION Vital Signs - 8 hr 07/15/18 07/15/18 03:20 07:47 Temperature 99.4 F Pulse Rate 66 69 Respiratory 16 20 Rate Blood Pressure 147/64 155/81 (mmHg) O2 Sat by Pulse 95 97 Oximetry Oxygen Devices in Use Now: None Appearance: Pleasant gentleman sitting up in bed in NAD. Eyes: No Scleral Icterus Ears/Nose/Mouth/Throat: Mucous Membranes Moist Neck: Trachea Midline Respiratory: Symmetrical Chest Expansion and Respiratory Effort, Clear to Auscultation Cardiovascular: RRR - Normal S1 and S2 Abdominal: - - Soft, mild distention, NG, NR, BS+, small umbilical hernia Neurological: Alert and Oriented x 3, NL Muscle Strength and Tone Result Diagrams: 07/15/18 08:03 07/15/18 07:58 Assess/Plan/Problems-Billing Assessment: Mr Bond is a 68yo M with PMH of BPH who presented to ED with c/o recurrent epigastric pain, radiating to his back, found to have acute cholecystitis. - Patient Problems (1) Acute cholecystitis Comment: - CT/US abdome reviewed - compatible with cholecytitis. - Surgery consult appreciated - plan for lap tim tomorrow. - Continue pain management, IVF, and Zosyn. - He has no complaints of chest pain, palpitations, or dyspnea. 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 EKG shows no ischemic changes, only LVH. Echo shows moderate to severe LVH with normal EF and no reported wall motion abnormalities, moderate MS. - Suspect his LVH is secondary to uncontrolled/undiagnosed HTN - will start amlodipine and monitor. - RCRI is 0 predicting a 0.4-0.5% risk of cardiac complications. He's optimized for proposed lap tim. (2) HTN (hypertension) Comment: - Suspect his LVH is secondary to uncontrolled HTN - continue amlodipine and monitor. - Talked to his PCP - EKG in 2009 already had some signs of LVH. - BP in the office was in th 130-140s before, but patient describes measuring his BP at home and getting very high numbers he attributed to stress. (3) BPH (benign prostatic hyperplasia) Comment: - Continue Alfuzosin. (4) DVT prophylaxis Comment: - SQ heparin (5) Full code status Status and Disposition: Inpatient for management of acute cholecystitis.
[2018-07-15 08:44] LABS: Albumin 3.6 g/dL (3.2-5.2); Albumin/Globulin Ratio 1.4 (1-3); Calcium 8.2 mg/dL (8.6-10.3); EGFR African American 100.6 (>60); EGFR Non-African American 83.1 (>60); Globulin 2.5 g/dL (2-4); Total Bilirubin 0.8 mg/dL (0.2-1.0); Total Protein 6.1 g/dL (6.4-8.9)
--- NOTE | 2018-07-15 13:39 | PN ---
Progress Note - Progress Note Date of Service: 07/15/18 Note: Cholecystitis T99, VS noted Voiding, No N/V Mild pain, also some right groin pain (feels like his old hernia) Abd obese, soft, mild RUQ tenderness, trace Aguayo's sign Right groin a little sore, No edema, mass, erythema. No hernia despite valsalva labs noted Consult by Fernando Chávez noted, agree with plan. Plan: Laparoscopic Cholecystectomy 07/16
[2018-07-15] MEDS: ALFUZOSIN 10 MG PO SCH (21:36)
[2018-07-16] MEDS: ZOSYN 3.375 GM Q8H per EXTENDED INFUSION IVPB SCH ×2 (00:12)
[2018-07-16] MEDS: Heparin VIAL(*) 5000 UNITS/ML VIAL (FIVE THOUSAND) SUBCUT SCH (05:42)
[2018-07-16] MEDS: NS 0.9% 1000 ML** 1,000 ML IV SCH (06:38)
[2018-07-16] MEDS ORDERED: Midazolam* 1 MG/ML 5 ML VIAL (5 MG) ONE (08:48)
[2018-07-16] MEDS ORDERED: Ketorolac INJ* 30 MG/ML 1 ML VIAL ONE (08:48)
[2018-07-16] MEDS ORDERED: Ondansetron INJ* 2 MG/ML VIAL ONE (08:48)
[2018-07-16] MEDS ORDERED: KETAMINE HCL* 50 MG/ML 10 ML VIAL ONE (08:48)
[2018-07-16] MEDS ORDERED: Propofol* 10 MG/ML 20 ML BTL ONE (08:48)
[2018-07-16] MEDS ORDERED: Lidocaine 2% PF * 5 ML VIAL ONE (08:48)
[2018-07-16] MEDS ORDERED: fentaNYL* 50 MCG/ML 2 ML VIAL (100 MCG VIAL) ONE ×2 (08:48→09:54)
[2018-07-16] MEDS ORDERED: Cisatracurium* 2 MG/ML MDV 5 ML ONE (08:48)
[2018-07-16] MEDS ORDERED: Dexamethasone IV* 4 MG/ML 1 ML (4 MG) ONE (08:48)
[2018-07-16] MEDS ORDERED: EPHEDrine (Pressors)* 50 MG/ML VIAL ONE (10:07)
--- NOTE | 2018-07-16 12:15 | PN ---
Subjective Date of Service: 07/16/18 Interval History: HOSPITALIST PROGRESS NOTE Patient seen and examined at bedside. Care reviewed and d/w Karen Owens RN. He feels well, offers no new complaints. Family History: Unchanged from Admission Social History: Unchanged from Admission Past Medical History: Unchanged from Admission Objective Active Medications: Acetaminophen (Tylenol Tab*) 650 mg PO Q4H PRN PRN Reason: FEVER/PAIN Al Hydrox/Mg Hydrox/Simethicone (Maalox Plus*) 30 ml PO Q6H PRN PRN Reason: INDIGESTION Alfuzosin HCl (Uroxatral (Nf)) 10 mg PO BEDTIME [facility] Last Admin: 07/15/18 21:36 Dose: 10 mg Amlodipine Besylate (Norvasc Tab*) 5 mg PO DAILY [facility] Last Admin: 07/15/18 08:18 Dose: 5 mg Docusate Sodium (Colace Cap*) 100 mg PO BID PRN PRN Reason: CONSTIPATION Heparin Sodium (Porcine) (Heparin Vial(*)) 5,000 units SUBCUT Q8HR [facility] Last Admin: 07/16/18 05:42 Dose: 5,000 units Sodium Chloride (Ns 0.9% 1000 Ml*) 1,000 mls @ 125 mls/hr IV PER RATE [facility] Last Admin: 07/16/18 06:38 Dose: 125 mls/hr Piperacillin Sod/Tazobactam (Sod 3.375 gm/ Sodium Chloride) 115 mls @ 28.75 mls /hr IVPB Q8H [facility] Last Admin: 07/16/18 00:12 Dose: 28.75 mls/hr Morphine Sulfate (Morphine Vial*) 4 mg IV Q4H PRN PRN Reason: PAIN - MILD Ondansetron HCl (Zofran Inj*) 4 mg IV Q4H PRN PRN Reason: NAUSEA/VOMITING Pharmacy Consult (Zosyn Per Pharmacy*) 1 note FOLLOW UP .ZOSYN PER PHARMACY [facility] Prochlorperazine Edisylate (Compazine Inj*) 5 mg IV Q6H PRN PRN Reason: NAUSEA/VOMITING Last Admin: 07/14/18 06:49 Dose: 5 mg Senna (Senokot Tab*) 1 tab PO BID PRN PRN Reason: CONSTIPATION Vital Signs - 8 hr 07/16/18 07/16/18 07/16/18 07:39 08:00 08:43 Temperature 98.4 F 98.2 F Pulse Rate 62 69 Respiratory 20 18 16 Rate Blood Pressure 165/84 176/87 (mmHg) O2 Sat by Pulse 96 98 Oximetry 07/16/18 11:30 Temperature 98.4 F Pulse Rate 90 Respiratory 16 Rate Blood Pressure 142/85 (mmHg) O2 Sat by Pulse 97 Oximetry Oxygen Devices in Use Now: Nasal Cannula Appearance: Pleasant gentleman sitting up in bed in NAD. Eyes: No Scleral Icterus Ears/Nose/Mouth/Throat: Mucous Membranes Moist Neck: Trachea Midline Respiratory: Symmetrical Chest Expansion and Respiratory Effort, Clear to Auscultation Cardiovascular: RRR - Normal S1 and S2 Neurological: Alert and Oriented x 3, NL Muscle Strength and Tone Result Diagrams: 07/15/18 08:03 07/15/18 07:58 Assess/Plan/Problems-Billing Assessment: Mr Bond is a 68yo M with PMH of BPH who presented to ED with c/o recurrent epigastric pain, radiating to his back, found to have acute cholecystitis. - Patient Problems (1) Acute cholecystitis Comment: - CT/US abdome reviewed - compatible with cholecytitis. - Surgery consult appreciated - plan for lap tim today. (2) HTN (hypertension) Comment: - Suspect his LVH is secondary to uncontrolled HTN. - Talked to his PCP - EKG in 2009 already had some signs of LVH. - BP in the office was in th 130-140s before, but patient describes measuring his BP at home and getting very high numbers he attributed to stress. - Will continue Amlodipine 5mg/day on discharge. (3) BPH (benign prostatic hyperplasia) Comment: - Continue Alfuzosin. (4) DVT prophylaxis Comment: - SQ heparin (5) Full code status Status and Disposition: Inpatient for management of acute cholecystitis.
--- NOTE | 2018-07-16 12:22 | OP ---
CC: Joni Mccartney MD.; Dr. Metcalf OPERATIVE REPORT: DATE OF OPERATION: 07/16/18 DATE OF : 52 SURGEON: Dr. Mccartney LOADER MACHINE: Shyla Sharma NP ANESTHESIOLOGIST: Dr. Dickerson. ANESTHESIA: General anesthetic, local infiltration PRE-OP DIAGNOSES: 1. Cholecystitis. 2. Umbilical hernia POST-OP DIAGNOSIS: 1. Cholecystitis. 2. Umbilical hernia OPERATIVE PROCEDURE: Laparoscopic cholecystectomy and umbilical hernia repair DESCRIPTION OF PROCEDURE: The patient was supine on the operative table. After adequate general ane sthetic, compression stockings, Bridger Hugger warmer, and intravenous antibiotics, the abdomen was prep ped with antiseptic, draped in a sterile fashion. Local infiltrative anesthesia was administered fir st at umbilicus and at the subsequent cannula sites. Supraumbilical curvilinear incision was created and umbilical hernia with preperitoneal flap was identified. This was approximately a defect of 2 c m. The flap protruded by about 3 cm. It was easily dissected free and reduced and the peritoneum wa s entered. Insufflation was carried out with carbon dioxide and additional cannulae, 12-mm subxiphoi d and 5-mm right upper quadrant, right anterior axillary line were placed through small stab wounds u nder direct vision. The gallbladder was acutely inflamed. Areolar tissue at the base of the gallbla dder was inflamed, but it was dissected free and the cystic duct and the cystic artery were readily i dentified and clipped and divided. The gallbladder was taken off the liver bed using electrocautery a nd scissor dissection and hemostasis was excellent using the electrocautery. The gallbladder had a l ittle bit of clear bile spillage. No stone spillage. He was placed in a retrieval bag and brought o ut through the umbilical site. The operative field was well irrigated with about a liter of warm keo ine solution. Free fluid was suctioned out. Hemostasis was again confirmed. The pneumoperitoneum w as allowed to escape. The umbilical hernia was repaired using 0 Vicryl, this was closed with a clyde nues suture transversely. The umbilical skin was also tacked back down and 3-0 Vicryl used for subcu taneum and 5-0 Vicryl for skin in all cases followed by Steri-Strips. He tolerated the procedure wel l, was awakened, and brought to Recovery in good condition. There were no complications. No drains. Pathologic specimen is gallbladder. Sponge and instrument counts were correct. Estimated blood lo ss is 30 to 50 mL. [id number]/[facility] #: [id number]
--- NOTE | 2018-07-16 12:22 | DS ---
CC: Joni Mccartney MD; Dr. Metcalf DISCHARGE SUMMARY: DATE OF ADMISSION: 07/14/18 DATE OF DISCHARGE: 07/16/18 PRINCIPAL ADMITTING DIAGNOSIS: Acute cholecystitis. SECONDARY DIAGNOSES: 1. Hypertension. 2. Left ventricular hypertrophy. 3. Benign prostatic hypertrophy. HOSPITAL COURSE: The patient is a 68-year-old male who came to the hospital with evidence of acute c holecystitis. He was put on antibiotics. He was evaluated on the hospital service. He ultimately h ad an echocardiogram which showed evidence of vixomyrx-dx-miyxvi concentric left ventricular hypertro phy, otherwise normal ejection fraction. He was also hypertensive and was put on amlodipine by the edical service and he was brought to surgery on 07/16/18 where he underwent laparoscopic cholecystect cody. He also had an umbilical hernia that was repaired at the time of the cholecystectomy. He was d oing well postoperatively and will be discharged home. He will continue on the [facility] and will foll ow up with Dr. Metcalf regarding his hypertension and we will see him back in the surgical office to tino rendon after his gallbladder surgery. [id number]/[facility] #: [id number]
[2018-07-16] MEDS ORDERED: oxyCODONE/Acetamin 5/325 MG* TAB PO PRN (13:22)
[2018-07-16] MEDS ORDERED: Naloxone* 0.4 MG/ML 1 ML VIAL IV PRN (13:22)
[2018-07-16 13:31] VITALS: BP 147/86
== END 2018-07-16 13:30 | disposition home or self-care (01) | DRG 263 ==
LOC: ED 02:03 → MEDTELE 04:27
PROVIDERS: ADMIT Pediatrics; ATTEND Internal Medicine
PROC: 0FT44ZZ Resection of Gallbladder, Percutaneous Endoscopic Approach (ICD-10-PCS; 2018-07-16)
PROC: 0WQF0ZZ Repair Abdominal Wall, Open Approach (ICD-10-PCS; principal; 2018-07-16 08:45)
DX: K81.0 Acute cholecystitis (principal); N40.0 Benign prostatic hyperplasia without lower urinary tract symptoms; K44.9 Diaphragmatic hernia without obstruction or gangrene; K57.30 Diverticulosis of large intestine without perforation or abscess without bleeding; J45.909 Unspecified asthma, uncomplicated; F41.9 Anxiety disorder, unspecified; I51.7 Cardiomegaly; I10 Essential (primary) hypertension; K42.9 Umbilical hernia without obstruction or gangrene; Z88.8 Allergy status to other drugs, medicaments and biological substances; Z82.49 Family history of ischemic heart disease and other diseases of the circulatory system; Z80.0 Family history of malignant neoplasm of digestive organs; Z87.891 Personal history of nicotine dependence; Z80.6 Family history of leukemia
CPT/HCPCS: 36415; 71275; 74174; 76705; 80053; 80061; 83605; 83690; 84484; 85025; 85379; 85610; 86140; 88304; 93005; 93306; 99284; A9270-GY; J0780; J1100; J1170; J1644; J1885; J2250; J2270; J2405; J2543; J2704; J3010; Q9967